=== PATIENT | male | born 1970 | race Caucasian/White ===

== ENCOUNTER 2018-11-17 09:04 | Day surgery (SDC) | payer BC ==
[2018-11-17] MEDS ORDERED: SEVOFLURANE 15 MIN (10:00)
[2018-11-17] MEDS ORDERED: MIDAZOLAM 1 MG/ML 2 ML INJ (10:15)
[2018-11-17] MEDS ORDERED: ROCURONIUM 50 MG INJ (10:15)
[2018-11-17] MEDS ORDERED: SUCCINYLCHOLINE CHLORIDE 100 MG/5 ML SYG IV (10:15)
[2018-11-17] MEDS ORDERED: LIDOCAINE 100 MG SYRINGE (10:15)
[2018-11-17] MEDS ORDERED: FENTAnyl 50 MCG/ML VIAL ×2 (10:15→12:50)
[2018-11-17] MEDS ORDERED: PROPOFOL 20 ML (10:15)
[2018-11-17] MEDS ORDERED: LACTATED RINGER'S 1,000 ML IV (10:30)
[2018-11-17] MEDS ORDERED: ROPIVACAINE 0.5 % 30 ML VIAL ×2 (11:10→15:44)
[2018-11-17] MEDS ORDERED: LABETALOL HCL 20MG INJ (13:04)
[2018-11-17] MEDS ORDERED: hydrALAzine 20 MG INJ (13:07)
[2018-11-17] MEDS ORDERED: OXYCODONE/ACETAMINOPHEN (5/325) TAB PO ×3 (15:00→16:30)
[2018-11-17] MEDS ORDERED: MEPERIDINE 25 MG INJ IV (15:00)
[2018-11-17] MEDS ORDERED: HYDROmorphONE 1 MG/5 ML IV SYRINGE IV ×3 (15:00)
[2018-11-17] MEDS ORDERED: DIPHENHYDRAMINE 50 MG INJ IV (15:00)
[2018-11-17] MEDS ORDERED: CEFAZOLIN 1 GM INJ ×3 (15:38→15:40)
[2018-11-17] MEDS ORDERED: ONDANSETRON 4 MG INJ (15:44)
[2018-11-17] MEDS ORDERED: DEXAMETHASONE 4 MG/ML 5 ML INJ (15:44)
[2018-11-17] MEDS ORDERED: SOD CHLORIDE 0.9% 1,000 ML IV (16:09)
[2018-11-17] MEDS ORDERED: ONDANSETRON 4 MG INJ IV (16:30)
[2018-11-17] MEDS ORDERED: morphine 2 MG INJ IV (16:30)
[2018-11-17] MEDS: ONDANSETRON 4 MG INJ IV (17:26)
== END 2018-11-17 18:49 | disposition home or self-care (01) ==
LOC: SDS 09:04
DX: M25.812 Other specified joint disorders, left shoulder (principal); M94.212 Chondromalacia, left shoulder; M75.102 Unspecified rotator cuff tear or rupture of left shoulder, not specified as traumatic
CPT/HCPCS: 29823; 73030